=== PATIENT | female | born 1950 | race Caucasian/White ===

== ENCOUNTER 2019-05-27 16:35 | Emergency (ER) | payer MEDICARE, OTHER ==
[~2019-05-27] VITALS: Ht 157.5 cm; Wt 71.2 kg
--- NOTE | 2019-05-27 16:37 | ED General ---
General Stated Complaint: PASSED OUT Source of Information: Patient History of Present Illness Date Seen by Provider: May 27, 2019 Time Seen by Provider: 16:37 Initial Comments Patient is a 68-year-old female with past medical history significant for hy pertension who comes to the emergency department today after a near-syncopal episode. Patient states she ate some pulled pork last night. She was the only person in her family who ate this. She began to feel ill overnight. Around 10:30 this morning, she had an episode of emesis which was quickly followed by multiple episodes of watery diarrhea and additional emesis. She struggled with these symptoms over the course of the day. Just prior to arrival, she was on the commode having a bowel movement. When she began to change position and stand she felt lightheaded. She sat back down on the toilet and leaned against the wall. Patient believes that she may have lost consciousness. She called her daughter to come to her house and she was able to then ambulate and walk to her bed where she remained until her daughter arrived 30 minutes later. Patient did not have chest pain or shortness of breath. She had no palpitations. She complains of some diffuse abdominal cramping and epigastric pain. No fever. She has not been ill lately otherwise. Allergies and Home Medications Allergies Coded Allergies: fentanyl (Verified Allergy, Unknown, 05/27/19) hydrocodone (Verified Allergy, Unknown, 05/27/19) promethazine (Verified Allergy, Unknown, 05/27/19) scopolamine (Verified Allergy, Unknown, 05/27/19) sulfamethoxazole (Verified Allergy, Unknown, 05/27/19) trimethoprim (Verified Allergy, Unknown, 05/27/19) Uncoded Allergies: IV contrast (Allergy, Unknown, 05/27/19) Patient Home Medication List Home Medication List Reviewed: Yes Review of Systems Review of Systems Constitutional: no symptoms reported EENTM: no symptoms reported Respiratory: no symptoms reported Cardiovascular: no symptoms reported Gastrointestinal: see HPI Genitourinary: no symptoms reported Musculoskeletal: no symptoms reported Skin: no symptoms reported Psychiatric/Neurological: See HPI Past Cqivzyo-Ljkohj-Rvjkpn Hx Patient Social History Recent Foreign Travel: No Physical Exam Vital Signs Vital Signs - First Documented 05/27/19 16:35 Temp 36.9 Pulse 67 Resp 18 B/P (MAP) 127/70 (89) Pulse Ox 99 O2 Delivery Room Air Capillary Refill : Height, Weight, BMI Height: '" Weight: lbs. oz. 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 as Tested Skin: Normal Color Progress/Results/Core Measures Suspected Sepsis SIRS Temperature: Pulse: Respiratory Rate: Laboratory Tests 05/27/19 17:00: White Blood Count 10.0 Blood Pressure / Mean: Laboratory Tests 05/27/19 17:00: Platelet Count 265 Results/Orders Lab Results Laboratory Tests Test 05/27/19 17:00 Range/Units White Blood Count 10.0 4.3-11.0 10^3/uL Red Blood Count 4.67 4.35-5.85 10^6/uL Hemoglobin 13.7 11.5-16.0 G/DL Hematocrit 40 35-52 % Mean Corpuscular Volume 85 80-99 FL Mean Corpuscular Hemoglobin 29 25-34 PG Mean Corpuscular Hemoglobin Concent 34 32-36 G/DL Red Cell Distribution Width 12.4 10.0-14.5 % Platelet Count 265 130-400 10^3/uL Mean Platelet Volume 9.6 7.4-10.4 FL Neutrophils (%) (Auto) 90 H 42-75 % Lymphocytes (%) (Auto) 5 L 12-44 % Monocytes (%) (Auto) 4 0-12 % Eosinophils (%) (Auto) 1 0-10 % Basophils (%) (Auto) 0 0-10 % Neutrophils # (Auto) 9.0 H 1.8-7.8 X 10^3 Lymphocytes # (Auto) 0.5 L 1.0-4.0 X 10^3 Monocytes # (Auto) 0.4 0.0-1.0 X 10^3 Eosinophils # (Auto) 0.1 0.0-0.3 10^3/uL Basophils # (Auto) 0.0 0.0-0.1 10^3/uL Neutrophils % (Manual) 80 % Lymphocytes % (Manual) 6 % Monocytes % (Manual) 3 % Eosinophils % (Manual) 0 % Basophils % (Manual) 0 % Band Neutrophils 11 % Blood Morphology Comment NORMAL My Orders Orders - LINDA GOMEZ DO Ed Iv/Invasive Line Start (05/27/19 16:38) Cbc With Automated Diff (05/27/19 16:38) Basic Metabolic Panel (05/27/19 16:38) Probnp Fs (05/27/19 16:38) Troponin I Fs (05/27/19 16:38) Ekg Tracing (05/27/19 16:38) Liver Panel (05/27/19 16:39) Prochlorperazine Injection (Compazine In (05/27/19 16:45) Diphenhydramine Injection (Benadryl Inje (05/27/19 16:45) Ns Iv 1000 Ml (Sodium Chloride 0.9%) (05/27/19 17:00) Iohexol Injection (Omnipaque 350 Mg/Ml 1 (05/27/19 17:00) Received Contrast (Hold Metformin- Contr (05/27/19 17:00) Sodium Chloride Flush (Catheter Flush Sy (05/27/19 17:00) Ns (Ivpb) (Sodium Chloride 0.9% Ivpb Bag (05/27/19 17:00) Manual Differential (05/27/19 17:00) Ondansetron Injection (Zofran Injectio (05/27/19 17:30) Ct Abdomen/Pelvis Wo (05/27/19 16:39) Medications Given in ED Current Medications Medications Dose Ordered Sig/Smith Route Start Time Stop Time Status Last Admin Dose Admin Diphenhydramine HCl 12.5 mg ONCE ONCE IVP 05/27/19 16:45 05/27/19 16:46 DC 05/27/19 17:29 12.5 MG Ondansetron HCl 4 mg ONCE ONCE IVP 05/27/19 17:30 05/27/19 17:31 DC 05/27/19 17:29 4 MG Vital Signs/I&O 05/27/19 16:35 Temp 36.9 Pulse 67 Resp 18 B/P (MAP) 127/70 (89) Pulse Ox 99 O2 Delivery Room Air Capillary Refill : Progress Note : Time: 16:40 Progress Note Patient is seen and examined. Overall, her physical examination is unremarkable. Her vital signs are normal. Will do EKG, troponin, labs, and CT abdomen and pelvis to evaluate her abdominal pain. Medications for symptom relief are ordered including Benadryl, Compazine, Pepcid. Will give IVF one liter NS. 17:55: Currently receiving IV fluids. Feeling improved. CT scan and labs pending. Will transfer care to Dr. Velasco at this time. Please follow up on CT/Labs/ and symptom relief. ECG Initial ECG Impression Date: May 27, 2019 Initial ECG Impression Time: 17:00 Initial ECG Rate: 63 Initial ECG Rhythm: Normal Sinus Departure Impression Primary Impression: Gastroenteritis Disposition: 01 HOME, SELF-CARE Condition: Improved Departure-Patient Inst. Referrals: ALLEN JJ DO (PCP) Primary Care Physician LINDA GOMEZ DO May 27, 2019 16:37
[2019-05-27] MEDS ORDERED: NS IV 500 ML 500 ML IV SCH (16:45)
[2019-05-27] MEDS ORDERED: diphenhydrAMINE 50 MG/ML INJ (BENADRYL) IVP ONE (16:45)
[2019-05-27] MEDS ORDERED: PROCHLORPERAZINE 10 MG/2ML INJ (COMPAZINE) IV ONE (16:45)
[2019-05-27] MEDS ORDERED: NS 100 ML (IVPB) BAG IV ONE (17:00)
[2019-05-27] MEDS ORDERED: CATHETER FLUSH 10 ML SYR IV PRN (17:00)
[2019-05-27] MEDS ORDERED: HOLD METFORMIN - RECEIVED CONTRAST 20 ML VIAL IV SCH (17:00)
[2019-05-27] MEDS ORDERED: NS IV 1000 ML 1,000 ML IV SCH (17:00)
[2019-05-27] MEDS ORDERED: IOHEXOL 350 MG/ML 100 ML (OMNIPAQUE 350) VIAL IV ONE (17:00)
[2019-05-27 17:08] LABS: BASOPHILS % (AUTO) 0 % (0-10); EOSINOPHILS % (AUTO) 1 % (0-10); HEMATOCRIT 40 % (35-52); HEMOGLOBIN 13.7 G/DL (11.5-16.0); LYMPHOCYTES % (AUTO) 5 % (12-44); MEAN CORPUSCULAR HEMOGLOBIN 29 PG (25-34); MEAN CORPUSCULAR HGB CONC 34 G/DL (32-36); MEAN CORPUSCULAR VOLUME 85 FL (80-99); MEAN PLATELET VOLUME 9.6 FL (7.4-10.4); MONOCYTES % (AUTO) 4 % (0-12); NEUTROPHILS % (AUTO) 90 % (42-75); PLATELET COUNT 265 10^3/uL (130-400); RED CELL DISTRIBUTION WIDTH 12.4 % (10.0-14.5)
[2019-05-27 17:09] LABS: EOSINOPHILS # (AUTO) 0.1 10^3/uL (0.0-0.3); LYMPHOCYTES # (AUTO) 0.5 X 10^3 (1.0-4.0); MONOCYTES # (AUTO) 0.4 X 10^3 (0.0-1.0)
[2019-05-27] MEDS ORDERED: ONDANSETRON 4 MG/2 ML (SDV) Z0FRAN IVP ONE (17:30)
[2019-05-27 17:31] LABS: BAND NEUTROPHILS 11 %; BASOPHILS % (MANUAL) 0 %; EOSINOPHILS % (MANUAL) 0 %; LYMPHOCYTES % (MANUAL) 6 %; MONOCYTES % (MANUAL) 3 %; NEUTROPHILS % (MANUAL) 80 %; RBC MORPH NORMAL
[2019-05-27 17:32] LABS: BUN/CREATININE RATIO 26; CALCIUM 9.8 MG/DL (8.5-10.1); CARBON DIOXIDE 23 MMOL/L (21-32); CHLORIDE 103 MMOL/L (98-107); CREATININE SERUM 0.92 MG/DL (0.60-1.30); GFR ESTIMATED 60; GLUCOSE 123 MG/DL (70-105); POTASSIUM 4.2 MMOL/L (3.6-5.0); SODIUM 142 MMOL/L (135-145)
[2019-05-27 17:52] LABS: ALANINE AMINOTRANSFERASE 14 U/L (0-55); ALBUMIN 4.8 GM/DL (3.2-4.5); ALKALINE PHOSPHATASE 77 U/L (40-136); BILIRUBIN,DIRECT < 0.2 MG/DL (0.0-0.3); BILIRUBIN,INDIRECT 0.4 MG/DL; BILIRUBIN,TOTAL 0.6 MG/DL (0.1-1.0)
--- NOTE | 2019-05-27 17:57 | Diagnostic Imaging Report ---
PROCEDURE: CT abdomen and pelvis without contrast. TECHNIQUE: Multiple contiguous axial images were obtained through the abdomen and pelvis without the use of intravenous contrast. Auto Exposure Controls were utilized during the CT exam to meet ALARA standards for radiation dose reduction. INDICATION: Nausea, abdominal cramping and emesis. FINDINGS: Unenhanced images of the liver and spleen reveal no focal abnormality. Gallbladder is surgically absent. Calcified granuloma is noted in the spleen. There is probable fatty infiltration of the pancreas and small diverticulum arising from the descending duodenum. No adrenal gland or renal abnormality is seen. There is no hydronephrosis or ureteric stone. The appendix has a normal appearance. There is mild fluid distention of small bowel loops; however, no transition point or obstruction is identified. There are numerous left colonic diverticula without evidence of pericolonic inflammation or fluid collection. Unopacified bladder is unremarkable. There are calcified phleboliths seen, bilaterally, in the pelvis. There is mild diffuse lumbar spondylosis. IMPRESSION: No acute abnormality is detected. Dictated by: Dictated on workstation # [id number]
[2019-05-27 19:06] VITALS: BP 123/77
--- OUTSIDE RECORDS SUMMARY | 2019-06-04 15:59 | XMS REPORT | Continuity of Care Document ---
Author Organization Unknown Address Unknown Phone Unavailable Allergies Active Description Code Type Severity Reaction Onset Reported/Identified Relationship to Patient Clinical Status Yes fentanyl [id number] Drug Allergy Unknown N/A 05/27/2019 Yes hydrocodone [id number] Drug Aller gy Unknown N/A 05/27/2019 Yes Iodinated Contrast Media [id number] Drug Allergy Unknown N/A 05/27/2019 Yes IV contrast IV contrast Unknown N/A 05/27/2019 Yes No Known Drug Allergies [id number] Drug Allergy Unknown N/A 05/27/2019 Yes promethazine [id number] Drug Allergy Unknown N/A 05/27/2019 Yes scopolamine [id number] Drug Aller gy Unknown N/A 05/27/2019 Yes sulfamethoxazole [id number] Drug Allergy Unknown N/A 05/27/2019 Yes trimethoprim [id number] Drug Allergy Unknown N/A 05/27/2019 Medications There is no data. Problems There is no data. Procedures There is no data. Results Test Result Range LIPID PANEL - 11/03/18 08:00 CHOLESTEROL, TOTAL 177 mg/dL <200 HDL CHOLESTEROL 56 mg/dL >50 TRIGLYCERIDES 68 mg/dL <150 LDL-CHOLESTEROL 106 mg/dL (calc) NRG CHOL/HDLC RATIO 3.2 (calc) <5.0 NON HDL CHOLESTEROL 121 mg/dL (calc) <13 0 CMP - 11/03/18 08:00 GLUCOSE 96 mg/dL 65-99 UREA NITROGEN (BUN) 16 mg/dL 7-25 CREATININE 0.94 mg/dL 0.60-0.93 eGFR NON-AFR. LIBERIAN 61 mL/min/1.73m2 > OR = 60 eGFR 71 mL/min/1.73m2 > OR = 60 BUN/CREATININE RATIO 17 (calc) 6-22 SODIUM 139 mmol/L 135-146 POTASSIUM 4.6 mmol/L 3.5-5.3 CHLORIDE 105 mmol/L 98-110 CARBON DIOXIDE 27 mmol/L 20-32 CALCIUM 9.6 mg/dL 8.6-10.4 PROTEIN, TOTAL 7.2 g/dL 6.1-8.1 ALBUMIN 4.4 g/dL 3.6-5.1 GLOBULIN 2.8 g/dL (calc) 1.9-3.7 ALBUMIN/GLOBULIN RATIO 1.6 (calc) 1.0-2. 5 BILIRUBIN, TOTAL 0.5 mg/dL 0.2-1.2 ALKALINE PHOSPHATASE 66 U/L 33-130 AST 13 U/L 10-35 ALT 12 U/L 6-29 Complete blood count (CBC) with automate d white blood cell (WBC) differential - 05/27/19 17:00 Blood leukocytes automated count (number/volume) 10.0 10*3/uL 4.3-11.0 Blood erythrocytes automated count (number/volume) 4.67 10*6/uL 4.35-5.85 Venous blood hemoglobin measurement (mass/volume) 13.7 g/dL 11.5-16.0 Blood hematocrit (volume fraction) 40 % 35-52 Automated erythrocyte mean corpuscular volume 85 [ foz_us] 80-99 Automated erythrocyte mean corpuscular h emoglobin (mass per erythrocyte) 29 pg 25-34 Automated erythrocyte mean corpuscular h emoglobin concentration measurement (mass/volume) 34 g/dL 32-36 Automated erythrocyte distribution width ratio 12. 4 % 10.0- 14.5 Automated blood platelet count (count/volume) 265 10*3/uL 130-400 Automated blood platelet mean volume measurement 9.6 [foz_us] 7.4-10.4 Automated blood neutrophils/100 leukocytes 90 % 42-75 Automated blood lymphocytes/100 leukocytes 5 % 12-44 Blood monocytes/100 leukocytes 4 % 0-12 Automated blood eosinophils/100 leukocytes 1 % 0-10 Automated blood basophils/100 leukocytes 0 % 0-10 Blood neutrophils automated count (number/volume) 9.0 10*3 1.8-7.8 Blood lymphocytes automated count (number/volume) 0.5 10*3 1.0-4.0 Blood monocytes automated count (number/volume) 0. 4 10*3 0.0-1.0 Automated eosinophil count 0.1 10*3/uL 0 .0-0.3 Automated blood basophil count (count/volume) 0.0 10*3/uL 0.0-0.1 Manual absolute plasma cell count - 01/05 17:00 Blood monocytes/100 leukocytes 3 % NRG Manual blood segmented neutrophils/100 leukocytes 80 % NRG Blood band neutrophils/100 leukocytes 11 % NRG Manual blood lymphocytes/100 leukocytes 6 % NRG Manual eosinophils/100 leukocytes in nose 0 % NRG Manual blood basophils/100 leukocytes 0 % NRG Blood erythrocyte morphology finding identification NORMAL NRG Liver function panel (serum or plasma al k phos, alb, total and direct bili, total protein, ALT, AST) - 05/27/19 17:00 Serum or plasma total bilirubin measurement (mass/volu me) 0.6 mg/dL 0.1-1.0 Serum or plasma alkaline phosphatase michelle surement (enzymatic activity/volume) 77 U/L 40-136 Serum or plasma aspartate aminotransfera se measurement (enzymatic activity/volume) 15 U/L 5-34 Serum or plasma alanine aminotransferase measurement (enzymatic activity/volume) 14 U/L 0-55 Serum or plasma protein measurement (mass/volume) 8.0 g/dL 6.4-8.2 Serum or plasma albumin measurement (mass/volume) 4.8 g/dL 3.2-4.5 Bilirubin direct < mg/dL 0.0-0.3 Serum or plasma indirect bilirubin measurement (mass/v olume) 0.4 mg/dL NR Whole blood basic metabolic panel - 01/05 17:00 Serum or plasma sodium measurement (moles/volume) 142 mmol/L 135-145 Serum or plasma potassium measurement (moles/volume) 4.2 mmol/L 3.6-5.0 Serum or plasma chloride measurement (moles/volume) 103 mmol/L 98-107 Carbon dioxide 23 mmol/L 21-32 Serum or plasma anion gap determination (moles/volume) 16 mmol/L 5-14 Serum or plasma urea nitrogen measurement (mass/volume ) 24 mg/dL 7-18 Serum or plasma creatinine measurement (mass/volume) 0.92 mg/dL 0.60-1.30 Serum or plasma urea nitrogen/creatinine mass ratio 26 NRG Serum or plasma creatinine measurement w ith calculation of estimated glomerular filtration rate 60 NRG Serum or plasma glucose measurement (mass/volume) 123 mg/dL 70-105 Serum or plasma calcium measurement (mass/volume) 9.8 mg/dL 8.5-10.1 TROPONIN I FS - 05/27/19 17:00 TROPONIN I FS < 0.30 <0.30 PROBNP FS - 05/27/19 17:00 PROBNP FS 100.4 pg/mL <75.0 Encounters ACCT No. Visit Date/Time Discharge Status Pt. Type Provider Facility Loc./Unit Complaint [id number] 05/03/2019 13:10:00 05/03/2019 23:59: 59 [facility] Outpatient JULISSA DURAN [facility] [id number] 11/03/2018 08:00:00 Document Registration [id number] 05/27/2019 16:35:00 020 19:12:00 DIS Emergency GOMEZ LINDA GARCIA [facility] FS PASSED OUT
--- OUTSIDE RECORDS SUMMARY | 2019-06-04 15:59 | XMS REPORT ---
Author Author Anupama DURANA Organization [facility] Address [address] [place] [id number] Care Team Providers Care Squeegee Tender Name Role Phone DURAN, JULISSA Unavailable PROBLEMS Type Condition ICD9-CM Code [id number] Code Onset Dates Condition S tatus SNOMED Code Problem Gastroesophageal reflux disease without esophagitis K21.9 Active [id number] Problem GEGE (generalized anxiety disorder) F41.1 Active [id number] ALLERGIES No Known Allergies ENCOUNTERS Encounter Location Date Diagnosis [address] [address] Jun, GEGE (generalized anxiety disorder) F41.[address] [address] Jun, GEGE (generalized anxiety disorder) F41.1 and Gastroesophageal reflux disease without esophagitis K21.[address] [address] May, IMMUNIZATIONS No Known Immunizations SOCIAL HISTORY Never Assessed REASON FOR VISIT f/u on medication and needs refill PLAN OF CARE VITAL SIGNS Height 62.5 in 2018-06-19 Weight 182 lbs 2018-06-19 BMI 32.75 kg/m2 2018-06-19 Blood pressure systolic 118 mmHg 2018-06-19 Blood pressure diastolic 60 mmHg 2018-06-19 MEDICATIONS Medication Instructions Dosage Frequency Start Date End Date Duration S tatus Pantoprazole Sodium 40 MG Orally Once a day 1 tablet 24h Jun 30 day(s) Active Xanax 0.25 MG Orally Twice a day prn 1 tablet 30 days Active RESULTS No Results PROCEDURES Procedure Date Ordered Result Body Site [facility] VISIT ESTABLISHED PATIENT June 19, 2018 INSTRUCTIONS MEDICATIONS ADMINISTERED No Known Medications
--- OUTSIDE RECORDS SUMMARY | 2019-06-04 15:59 | XMS REPORT ---
Author Author Anupama DURAN JULISSA Organization [facility] Address [address] [place] [address] Care Team Providers Care Rn Cardiovascular Name Role Phone JULISSA DURAN Unavailable PROBLEMS Type Condition ICD9-CM Code VOJ09-AS Code Onset Dates Condition S tatus SNOMED Code Problem Gastroesophageal reflux disease without esophagitis K21.9 Active [id number] Problem GEGE (generalized anxiety disorder) F41.1 Active [id number] ALLERGIES No Information ENCOUNTERS Encounter Location Date Diagnosis [address] [address] Jun, GEGE (generalized anxiety disorder) F41.[address] [address] Jun, GEGE (generalized anxiety disorder) F41.1 and Gastroesophageal reflux disease without esophagitis K21.[address] [address] May, IMMUNIZATIONS No Known Immunizations SOCIAL HISTORY Never Assessed REASON FOR VISIT PLAN OF CARE VITAL SIGNS MEDICATIONS Medication Instructions Dosage Frequency Start Date End Date Duration S tatus Xanax 0.25 MG Orally Twice a day prn 1 tablet 30 days Active RESULTS No Results PROCEDURES No Known procedures INSTRUCTIONS MEDICATIONS ADMINISTERED No Known Medications
== END 2019-05-27 19:12 | disposition home or self-care (01) ==
LOC: EDUNIT# 16:35 → ER FS 16:35
DX: K52.9 Noninfective gastroenteritis and colitis, unspecified (principal); Z88.5 Allergy status to narcotic agent; Z88.8 Allergy status to other drugs, medicaments and biological substances; Z88.2 Allergy status to sulfonamides; Z88.1 Allergy status to other antibiotic agents
CPT/HCPCS: 36415; 74176; 80048; 80076; 83880; 84484; 85007; 85027; 93005; 96361; 96374; 96375

== ENCOUNTER → 2019-09-12 | Outpatient (CLI) | payer MEDICARE, OTHER ==
[2019-09-12 10:40] LABS: BUN/CREATININE RATIO 14; CARBON DIOXIDE 28 MMOL/L (21-32); CHLORIDE 102 MMOL/L (98-107); CREATININE SERUM 0.87 MG/DL (0.60-1.30); GFR ESTIMATED > 60; GLUCOSE 105 MG/DL (70-105); POTASSIUM 4.6 MMOL/L (3.6-5.0); SODIUM 140 MMOL/L (135-145)
[2019-09-12 10:41] LABS: ALANINE AMINOTRANSFERASE 9 U/L (0-55); ALBUMIN 4.5 GM/DL (3.2-4.5); ALKALINE PHOSPHATASE 72 U/L (40-136); BILIRUBIN,TOTAL 0.5 MG/DL (0.1-1.0); CALCIUM 9.6 MG/DL (8.5-10.1); MAGNESIUM 2.1 MG/DL (1.6-2.4); TOTAL PROTEIN 7.4 GM/DL (6.4-8.2)
[2019-09-12 15:04] LABS: CHOLESTEROL 184 MG/DL (< 200); HDL CHOLESTEROL 56 MG/DL (40-60); TRIGLYCERIDES 87 MG/DL (<150); VLDL CHOLESTEROL 17 MG/DL (5-40)
== END ==
LOC: LAB FS 09:37
PROVIDERS: ATTEND Family Medicine
DX: I10 Essential (primary) hypertension (principal); R25.2 Cramp and spasm; R50.9 Fever, unspecified; Z20.828 Contact with and (suspected) exposure to other viral communicable diseases
CPT/HCPCS: 36415; 80053; 80061; 83735; 86769

== ENCOUNTER → 2019-10-07 | Outpatient (CLI) | payer MEDICARE, OTHER | LOC: LAB FS 02:15 | PROVIDERS: ATTEND Family Medicine | DX: Z01.818 Encounter for other preprocedural examination (principal) | CPT/HCPCS: 87635 ==

== ENCOUNTER → 2020-03-31 | Outpatient (CLI) | payer MEDICARE, OTHER ==
[2020-03-31 15:03] LABS: ALANINE AMINOTRANSFERASE 12 U/L (0-55); ALBUMIN 4.2 GM/DL (3.2-4.5); ALKALINE PHOSPHATASE 66 U/L (40-136); BILIRUBIN,TOTAL 0.4 MG/DL (0.1-1.0); BUN/CREATININE RATIO 15; CALCIUM 8.9 MG/DL (8.5-10.1); CARBON DIOXIDE 24 MMOL/L (21-32); CHLORIDE 104 MMOL/L (98-107); CHOLESTEROL 171 MG/DL (< 200); CREATININE SERUM 0.87 MG/DL (0.60-1.30); GFR ESTIMATED > 60; GLUCOSE 94 MG/DL (70-105); HDL CHOLESTEROL 59 MG/DL (40-60); POTASSIUM 4.1 MMOL/L (3.6-5.0); SODIUM 138 MMOL/L (135-145); TRIGLYCERIDES 68 MG/DL (<150); VLDL CHOLESTEROL 14 MG/DL (5-40)
== END ==
LOC: LAB FS 11:12
PROVIDERS: ATTEND Family Medicine
DX: I10 Essential (primary) hypertension (principal)
CPT/HCPCS: 36415; 80053; 80061

== ENCOUNTER → 2020-05-07 | Outpatient (CLI) | payer MEDICARE ==
--- NOTE | 2020-05-07 14:42 | Diagnostic Imaging Report ---
INDICATION: Left heel pain. COMPARISON: None. FINDINGS: Two views of the left calcaneus were obtained and show no fractures, dislocations, or other acute bony abnormalities. Joint spaces are well maintained throughout. The soft tissues appear unremarkable. No radiopaque foreign bodies are identified. IMPRESSION: Unremarkable radiographic exam of the left calcaneus. Dictated by: Dictated on workstation # [id number]
--- NOTE | 2020-05-07 14:43 | Diagnostic Imaging Report ---
INDICATION: Neck pain. Shoulder pain. COMPARISON: None FINDINGS: Frontal, lateral, oblique, and open-mouth radiographic views of the cervical spine were obtained. Cervical spine is seen down to C7-T1 level on the lateral view. Static alignment is maintained. There is no significant kylie- or retrolisthesis. There is no evidence of jumped facets. Open-mouth view shows normal C1-C2 alignment as well. There is no acute fracture. Vertebral body heights are maintained. There are moderate multilevel degenerative changes consistent with intervertebral disc height loss with disc osteophyte complex formations. These changes are greatest at the C6-C7 level where there is also significant sclerotic change of the adjacent endplates. Oblique views show mild multilevel neural foraminal narrowing. Surrounding soft tissue structures are unremarkable. Included portions of the lung apices are clear. IMPRESSION: 1. No acute fracture or dislocation of the cervical spine. 2. Moderate multilevel degenerative changes greatest at C6-C7. Dictated by: Dictated on workstation # [id number]
--- NOTE | 2020-05-07 14:44 | Diagnostic Imaging Report ---
INDICATION: Back pain. COMPARISON: None FINDINGS: Frontal and lateral views of the lumbar spine were obtained. Evaluation of static alignment shows slight grade 1 anterolisthesis at L4-L5. There is no evidence of jumped facets. Static alignment is otherwise maintained. Vertebral body heights are preserved. There is no fracture or destructive process. Moderate multilevel degenerative disease is noted in the lumbar spine. Limited views of the abdomen demonstrate nonobstructive bowel gas pattern. IMPRESSION: 1. No acute fracture or dislocation of the lumbar spine. 2. Moderate multilevel degenerative changes. Dictated by: Dictated on workstation # [id number]
== END ==
LOC: RAD FS 13:17
PROVIDERS: ATTEND Family Medicine
DX: M47.816 Spondylosis without myelopathy or radiculopathy, lumbar region (principal); M50.323 Other cervical disc degeneration at C6-C7 level; M48.02 Spinal stenosis, cervical region; M72.2 Plantar fascial fibromatosis
CPT/HCPCS: 72050; 72100; 73650

== ENCOUNTER → 2020-05-19 | Outpatient (CLI) | payer MEDICARE, OTHER ==
--- NOTE | 2020-05-19 15:18 | Diagnostic Imaging Report ---
PROCEDURE: MR imaging cervical spine without contrast. TECHNIQUE: Multiplanar, multisequence MR imaging of the cervical spine was performed without contrast. INDICATION: Neck and shoulder pain correlated with cervical radiographs of 05/07/2020. The cervical spinal cord itself appeared intrinsically normal with normal signal intensity. No paraspinal mass, hemorrhage or fluid collection. The ligamentous structures are intact. There is slight grade 1 degenerative retrolisthesis of C3 on 4, C4 on 5 and C5 on C6, measured about 1 to 2 mm. No acute bony pathology. There is an incidental hemangioma involving the T4 vertebral body. No acute or suspicious marrow signal abnormality. Degenerative disc bulge, endplate osteophytes and facet arthrosis result in multilevel canal and foraminal stenoses. The craniocervical relationship, the C1-C2 and the C2-C3 levels appeared normal without stenosis. C3-C4: Osteophyte disc material posteriorly indents the ventral thecal sac. There is a moderate to severe magnitude of central canal stenosis with relatively mild biforaminal stenoses. C4-C5: Posterior osteophyte disc material flattens and effaces the ventral thecal sac and mildly effaces and indents the ventral cord. There is severe canal stenosis with moderate bi-foraminal narrowing. C5-C6: Posterior osteophyte disc material indents the ventral thecal sac and mildly indents the ventral cord. There is severe canal stenosis with moderate right and mild left foraminal narrowing. C6-C7: Posterior osteophyte disc material indents the ventral thecal sac. There is a moderate degree of canal stenosis. There is mild biforaminal narrowing. C7-T1: No significant stenosis IMPRESSION: Substantial degrees of multilevel canal and foraminal stenoses, most notable from C3-C4 through C6-C7 levels are present. Slight multilevel grade 1 degenerative listheses with no acute bony abnormality. Dictated by: Dictated on workstation # [id number]
== END ==
LOC: RAD 12:53
PROVIDERS: ATTEND Family Medicine
DX: M48.02 Spinal stenosis, cervical region (principal); M43.12 Spondylolisthesis, cervical region; R20.0 Anesthesia of skin
CPT/HCPCS: 72141

== ENCOUNTER → 2020-06-27 | Outpatient (CLI) | payer MEDICARE, OTHER ==
[2020-06-27 10:16] LABS: BUN/CREATININE RATIO 10; CARBON DIOXIDE 26 MMOL/L (21-32); CHLORIDE 103 MMOL/L (98-107); CREATININE SERUM 0.87 MG/DL (0.60-1.30); GFR ESTIMATED > 60; GLUCOSE 104 MG/DL (70-105); SODIUM 141 MMOL/L (135-145)
[2020-06-27 10:17] LABS: ALANINE AMINOTRANSFERASE 11 U/L (0-55); ALBUMIN 4.6 GM/DL (3.2-4.5); ALKALINE PHOSPHATASE 64 U/L (40-136); BILIRUBIN,TOTAL 0.4 MG/DL (0.1-1.0); CALCIUM 9.4 MG/DL (8.5-10.1); TOTAL PROTEIN 7.4 GM/DL (6.4-8.2)
[2020-06-27 15:06] LABS: CHOLESTEROL 150 MG/DL (< 200); HDL CHOLESTEROL 49 MG/DL (40-60); TRIGLYCERIDES 54 MG/DL (<150); VLDL CHOLESTEROL 11 MG/DL (5-40)
== END ==
LOC: LAB FS 09:09
PROVIDERS: ATTEND Family Medicine
DX: I10 Essential (primary) hypertension (principal)
CPT/HCPCS: 36415; 80053; 80061

== ENCOUNTER → 2020-09-29 | Outpatient (CLI) | payer MEDICARE, OTHER | LOC: LAB FS 16:37 | PROVIDERS: ATTEND Family Medicine | DX: U07.1 COVID-19 (principal) | CPT/HCPCS: 36415; 86769 ==

== ENCOUNTER → 2020-09-30 | Outpatient (CLI) | payer MEDICARE, OTHER | LOC: LABNPT 16:41 | PROVIDERS: ATTEND Family Medicine | DX: N39.0 Urinary tract infection, site not specified (principal) | CPT/HCPCS: 87088 ==

== ENCOUNTER → 2021-02-19 | Outpatient (CLI) | payer MEDICARE, OTHER ==
[2021-02-19 11:20] LABS: BUN/CREATININE RATIO 14; CALCIUM 9.6 MG/DL (8.5-10.1); CARBON DIOXIDE 28 MMOL/L (21-32); CHLORIDE 102 MMOL/L (98-107); CREATININE SERUM 0.86 MG/DL (0.60-1.30); GFR ESTIMATED 65; GLUCOSE 97 MG/DL (70-105); POTASSIUM 4.1 MMOL/L (3.6-5.0); SODIUM 138 MMOL/L (135-145)
[2021-02-19 11:21] LABS: ALANINE AMINOTRANSFERASE 8 U/L (0-55); ALBUMIN 4.7 GM/DL (3.2-4.5); ALKALINE PHOSPHATASE 72 U/L (40-136); BILIRUBIN,TOTAL 0.4 MG/DL (0.1-1.0); TOTAL PROTEIN 7.5 GM/DL (6.4-8.2)
[2021-02-19 15:13] LABS: CHOLESTEROL 192 MG/DL (< 200); HDL CHOLESTEROL 61 MG/DL (40-60); TRIGLYCERIDES 63 MG/DL (<150); VLDL CHOLESTEROL 13 MG/DL (5-40)
== END ==
LOC: LAB FS 09:54
PROVIDERS: ATTEND Registered Nurse Emergency
DX: I10 Essential (primary) hypertension (principal); E78.2 Mixed hyperlipidemia
CPT/HCPCS: 36415; 80053; 80061

== ENCOUNTER → 2021-04-07 | Outpatient (CLI) | payer MEDICARE, OTHER | LOC: LABNPT 14:42 | PROVIDERS: ATTEND Registered Nurse Emergency | DX: N39.0 Urinary tract infection, site not specified (principal) | CPT/HCPCS: 87088 ==

== ENCOUNTER → 2021-04-16 | Outpatient (CLI) | payer MEDICARE, OTHER | LOC: LABNPT 15:01 | PROVIDERS: ATTEND Family Medicine | DX: Z20.822 Contact with and (suspected) exposure to COVID-19 (principal) | CPT/HCPCS: 87636 ==

== ENCOUNTER → 2021-07-07 | Outpatient (CLI) | payer MEDICARE, OTHER ==
[2021-07-07 11:08] LABS: BILIRUBIN,TOTAL 0.5 MG/DL (0.1-1.0); CALCIUM 9.7 MG/DL (8.5-10.1); CREATININE SERUM 0.84 MG/DL (0.60-1.30); POTASSIUM 4.1 MMOL/L (3.6-5.0)
[2021-07-07 11:09] LABS: ALBUMIN 4.5 GM/DL (3.2-4.5); TOTAL PROTEIN 7.5 GM/DL (6.4-8.2)
== END ==
LOC: LAB FS 10:12
PROVIDERS: ATTEND Family Medicine
DX: I10 Essential (primary) hypertension (principal)
CPT/HCPCS: 36415; 80053; 80061

== ENCOUNTER → 2022-01-08 | Outpatient (CLI) | payer MEDICARE, OTHER ==
[2022-01-08 16:40] LABS: BASOPHILS % (AUTO) 0 % (0-10); EOSINOPHILS % (AUTO) 1 % (0-10); HEMATOCRIT 35 % (35-52); HEMOGLOBIN 11.7 g/dL (11.5-16.0); LYMPHOCYTES # (AUTO) 1.3 10^3/uL (1.0-4.0); LYMPHOCYTES % (AUTO) 19 % (12-44); MEAN CORPUSCULAR HEMOGLOBIN 30 pg (25-34); MEAN CORPUSCULAR HGB CONC 34 g/dL (32-36); MEAN CORPUSCULAR VOLUME 88 fL (80-99); MEAN PLATELET VOLUME 9.4 fL (9.0-12.2); MONOCYTES # (AUTO) 0.4 10^3/uL (0.0-1.0); MONOCYTES % (AUTO) 5 % (0-12); NEUTROPHILS # (AUTO) 5.2 10^3/uL (1.8-7.8); NEUTROPHILS % (AUTO) 75 % (42-75); PLATELET COUNT 243 10^3/uL (130-400)
[2022-01-08 16:58] LABS: ALBUMIN 4.5 GM/DL (3.2-4.5); BILIRUBIN,TOTAL 0.3 MG/DL (0.1-1.0); CALCIUM 9.4 MG/DL (8.5-10.1); CREATININE SERUM 1.06 MG/DL (0.60-1.30); POTASSIUM 4.3 MMOL/L (3.6-5.0); TOTAL PROTEIN 7.3 GM/DL (6.4-8.2)
== END ==
LOC: LAB FS 16:27
PROVIDERS: ATTEND Registered Nurse Emergency
DX: R42 Dizziness and giddiness (principal); R55 Syncope and collapse
CPT/HCPCS: 36415; 80053; 85025

== ENCOUNTER 2022-02-03 05:30 | Outpatient (CLI) | payer MEDICARE, OTHER ==
[~2022-02-03] VITALS: Ht 157.5 cm; Wt 68.1 kg
[2022-02-04] MEDS ORDERED: PANT40GR PO (13:12)
[2022-02-10] MEDS ORDERED: TRAM50TA3 PO (12:04)
== END 2022-02-04 13:27 | disposition home or self-care (01) ==
LOC: PREOP 05:30
PROVIDERS: ATTEND Surgery
DX: Z01.818 Encounter for other preprocedural examination (principal)

== ENCOUNTER 2022-02-10 09:23 | Day surgery (SDC) | payer MEDICARE, OTHER ==
[2022-02-10] VITALS (10 sets, daily range): BP systolic 94–150; BP diastolic 58–77
[~2022-02-10] VITALS: Ht 157 cm; Wt 68.1 kg
[~2022-02-10 09:23] MED LIST: PANT40GR PO
[2022-02-10] MEDS ORDERED: ceFAZolin INJECTION 2,000 MG in NS (IVPB) 50 ML IV ONE (09:45)
[2022-02-10] MEDS ORDERED: LACTATED RINGERS 1,000 ML IV PRN (09:45)
[2022-02-10] MEDS ORDERED: LIDOCAINE/EPI 1%-1:100,000 (XYLOCAINE) 10 ML ONE (11:15)
[2022-02-10] MEDS ORDERED: ONDANSETRON 4 MG/2 ML (SDV) Z0FRAN ONE ×3 (11:21→12:19)
[2022-02-10] MEDS ORDERED: proPOfol 200 MG/20 ML (DIPRIVAN) VIAL IV ONE (11:21)
[2022-02-10] MEDS ORDERED: HYDROmorphone 2 MG/ML VIAL (DILAUDID) ONE (11:21)
[2022-02-10] MEDS ORDERED: LIDOCAINE PF 2% 5 ML (XYLOCAINE) VIAL ONE (11:21)
[2022-02-10] MEDS ORDERED: LIDOCAINE/EPI 1%-1:100,000 (XYLOCAINE) 10 ML INJ ONE (11:59)
[2022-02-10] MEDS ORDERED: SEVOFLURANE (ULTANE) 15 ML INHAL SOLN ONE (12:00)
--- NOTE | 2022-02-10 12:02 | Progress Note-Post Operative ---
Post-Operative Progess Note Surgeon (s)/Brazing Furnace Feeder (s) Surgeon PHILLIP TODD DO Brazing Furnace Feeder: RADHA Hernandez Pre-Operative Diagnosis MASS LEFT SHOULDER Post-Operative Diagnosis same pending path Procedure & Operative Findings Date of Procedure 02/10/22 Procedure Performed/Findings Excision of Left shoulder mass, in SubQ Incision measured 3.2cm Anesthesia Type LMA Estimated Blood Loss Estimated blood loss (mL): scant Specimens/Packing Specimens Removed left shoulder mass and skin PHILLIP TODD DO Feb 10, 2022 12:02
[2022-02-10] MEDS ORDERED: TRAM50TA3 PO (12:04)
--- NOTE | 2022-02-10 12:06 | Discharge Inst-Surgical ---
Discharge Inst-Surgical Depart Medication/Instructions New, Converted or Re-Newed RX: Transmitted to Pharmacy Patient Instructions Follow up Appt: Make appointment for 1 week. [phone] Instructions: No strenuous activity. May shower in 24 hours, no tub bath or soaking. Use incentive spirometer at home as directed. No Smoking Skin/Wound Care: You need to come in to clinic to have the sutures removed Symptoms to Report: Appetite Changes, Extremity Discoloration, Numbness/Tingling, Swelling Increased, Bleeding Excessive, Eyesight Changes, Pain Increased, Urine Color Change, Constipation(Persistent), Fever over 101 degree F, Pain/Pressure in chest, Urinating Difficulty, Cough Up/Vomit Blood, Heart Beat Irreg/Pounding, Pain/Pressure in jaw, Cramps in feet or legs, Lightheadedness, Pain/Pressure in shoulder, Diarrhea(Persistent), Memory Changes Suddenly, Questions/Concerns, Weight gain consecutive days, Dizziness/Fainting, Nausea/Vomiting, Shortness of Breath, Weight gain over 2 pounds If questions or concerns contact your physician Or seek help at emergency department. Activity Activity as Tolerated: Yes Activity Instructions: Avoid Stress to Incision Driving Instructions: No Driving/Refer to Dr. Angulo Discharge Diet: No Restrictions Diet After 24 Hours: Clear Liquid if Nauseous If Any Problems/Questions/Issu: Contact Your Physician, Go to Emergency Room Skin/Wound Care Infection Signs and Symptoms: Increased Redness, Foul Odor of Wound, Increased Drainage, Skin Itchy or Has a Rash, Increased Swelling, Temperature Above 101 F Bathing Instructions: Shower Stitches/[place]/Dermabond Dis: Care of Stitches PHILLIP TODD DO Feb 10, 2022 12:06
--- NOTE | 2022-02-10 13:01 | Anesthesia-General Post-Op ---
General Patient Condition Mental Status/LOC: Same as Preop Cardiovascular: Satisfactory Nausea/Vomiting: Absent Respiratory: Satisfactory Pain: Controlled Complications: Absent Post Op Complications Complications None Follow Up Care/Instructions Patient Instructions None needed. Anesthesia/Patient Condition Patient Condition Patient is doing well, no complaints, stable vital signs, no apparent adverse anesthesia problems. No complications reported per nursing. SOFY ESPINAL CRNA Feb 10, 2022 13:01
[2022-02-10] MEDS: ONDANSETRON 4 MG/2 ML (SDV) Z0FRAN IVP PRN ×2 (13:04→13:35)
[2022-02-10] MEDS ORDERED: ONDANSETRON 4 MG/2 ML (SDV) Z0FRAN IVP ONE (13:30)
--- NOTE | 2022-02-10 23:17 | OPERATIVE REPORT ---
DATE OF SERVICE: 02/10/2022 PREOPERATIVE DIAGNOSIS: Left shoulder mass. POSTOPERATIVE DIAGNOSIS: Left subcutaneous shoulder mass. PROCEDURE: Excision of shoulder mass, 3.2 cm incision into the subcutaneous tissue. SURGEON: Tay Todd DO PROBATE CLERK: Anthony Naidu MS3. BLOOD LOSS: Scant. FLUIDS: Per anesthesia. POSTOPERATIVE CONDITION: Stable. INDICATION FOR PROCEDURE: The patient is a 71-year-old female, who had a mass on her left shoulder. She wanted to get it removed, could not do this in the office. FINDINGS: The patient had a left shoulder mass, removed and sent to pathology. PROCEDURE NOTE: After informed consent was obtained, the patient was brought to the operating room, placed on the table in supine position. Bump placed in the left shoulder. She was then sterilely prepped and draped in normal fashion. Local lidocaine was used to infiltrate the skin around this mass. I made an elliptical incision to take a portion of the skin with it. This was a subcutaneous mass. Incision measured 3.2 cm in length. This elliptical incision, infiltrated with local, made an incision with #15 blade, carried down through skin and subcutaneous tissue, then deepened down to subcutaneous tissue with Bovie electrocautery down and around the mass, removed it en bloc, passed this off table. Irrigated the incision with normal saline. Dried this out and then closed the incision with 3 interrupted 3-0 nylon vertical mattress sutures. Area was cleaned and dried, dressing placed. The patient tolerated the procedure. Sponge, instrument and needle count correct at the end of the case. Job ID: [id number] DocumentID: [id number] Dictated Date: 02/10/2022 14:04:19 Senior Consulting Manager Date: 02/10/2022 23:16:52 Dictated By: TAY TODD DO
== END 2022-02-10 14:25 | disposition home or self-care (01) ==
LOC: SDC 09:23
PROVIDERS: ATTEND Surgery
DX: L72.0 Epidermal cyst (principal)
CPT/HCPCS: 87081

== ENCOUNTER → 2022-07-08 | Outpatient (CLI) | payer MEDICARE, OTHER ==
[~2022-07-08] MED LIST changes: +TRAM50TA3 PO
--- NOTE | 2022-07-08 18:22 | Diagnostic Imaging Report ---
INDICATION: Chest pain, high blood pressure. COMPARISONS: None FINDINGS: PA and lateral chest show normal heart pleura and diaphragms. There is slight prominent central lung markings with some peribronchial cuffing. Some minimal basilar atelectatic type infiltrates are seen but no confluent consolidations. There is some scattered granuloma. There is a small apparent density in the lateral right lower lobe which is thought to be summation of shadows rather than focal nodule. There is no effusion or pneumothorax. Soft tissues and bony thorax unremarkable. IMPRESSION: Some central reactive changes of mild bronchitis. Some background chronic parenchymal changes are seen. No consolidation, effusion or pneumothorax seen. Additional nonemergent findings as described. Dictated by: Dictated on workstation # [id number]
== END ==
LOC: RAD FS 16:50
PROVIDERS: ATTEND Family Medicine
DX: J40 Bronchitis, not specified as acute or chronic (principal); K21.9 Gastro-esophageal reflux disease without esophagitis; I10 Essential (primary) hypertension
CPT/HCPCS: 71046

== ENCOUNTER → 2022-09-20 | Outpatient (CLI) | payer MEDICARE, OTHER ==
--- NOTE | 2022-09-20 18:39 | Diagnostic Imaging Report ---
PROCEDURE: CT chest without contrast. TECHNIQUE: Multiple contiguous axial images were obtained through the chest without the use of intravenous contrast. Auto Exposure Controls were utilized during the CT exam to meet ALARA standards for radiation dose reduction. INDICATION: 72-year-old female, post Covid with precordial pain. CORRELATION STUDY: None FINDINGS: Visualized thyroid gland is enlarged with multiple masses, right greater than left. Calcified lymph nodes within the mediastinum and right hilum. No pathologic mediastinal lymph nodes on this noncontrast study. Heart size is within normal limits. There is coronary artery calcification particularly in the region of the LAD. No significant pericardial effusion. Thoracic aortic contour unremarkable. Gastroesophageal junction unremarkable. Lung arteaga demonstrate no infiltrate. Calcified granuloma in the right upper and right lower lobe. There are several small, approximately 2 to 4 mm noncalcified nodules bilateral upper lobes. Findings suggest an endobronchial nodule at the left lower lobe centrally measures approximately 8 mm in length x 7 mm craniocaudal (image 96 series 5 and image 129, series 7 and image 37 series 11). Gallbladder is absent. Osseous structures demonstrate no acute abnormality with mildly advanced degenerative changes and slightly accentuated thoracic kyphosis. IMPRESSION: 1. Bilateral small upper lobe pulmonary nodules some of which are calcified. May reflect prior granulomatous disease. Other noncalcified nodules are nonspecific. 2. There does appear to be an asymmetric endobronchial nodule left lower lobe. While conceivably represent secretions/mucus, endobronchial nodule is not excluded. This does warrant short-term follow-up imaging with a recommendation for repeat CT chest in approximately 1 to 2 months. Dictated by: Dictated on workstation # [id number]
== END ==
LOC: RAD FS 10:12
PROVIDERS: ATTEND Family Medicine
DX: R91.8 Other nonspecific abnormal finding of lung field (principal); R07.2 Precordial pain
CPT/HCPCS: 71250

== ENCOUNTER → 2022-11-09 | Outpatient (CLI) | payer MEDICARE, OTHER ==
--- NOTE | 2022-11-09 11:04 | Diagnostic Imaging Report ---
EXAMINATION: CT chest without contrast. TECHNIQUE: Multiple contiguous axial images were obtained through the chest without the use of intravenous contrast. All CT scans use one or more of the following dose optimizing techniques: automated exposure control, MA and/or KvP adjustment based on patient size and exam type or iterative reconstruction. HISTORY: Precordial pain. COMPARISON: 09/20/2022. FINDINGS: The heart size is within normal limits. No pericardial effusion is present. There is no mediastinal, hilar, or axillary lymphadenopathy. Stable scattered calcified granulomas. Stable nodule in the left lower lobe measuring 0.8 x 0.7 cm. No new suspicious nodules. There are no focal areas of consolidation. There is no pleural effusion or pneumothorax. The osseous structures demonstrate no acute abnormalities. Limited views of the upper abdominal structures demonstrate no acute abnormalities. Both adrenal glands are unremarkable. IMPRESSION: 1. Stable nodule in the left lower lobe measuring 0.8 x 0.7 cm, which appears to represent an endobronchial nodule versus chronic mucous plugging. Given the stability, follow-up in 3-6 months is recommended to ensure continued stability. 2. No new suspicious nodules are identified. Dictated by: Dictated on workstation # [id number]
== END ==
LOC: RAD FS 07:53
PROVIDERS: ATTEND Family Medicine
DX: R91.1 Solitary pulmonary nodule (principal); R07.2 Precordial pain
CPT/HCPCS: 71250

== ENCOUNTER → 2023-03-22 | Outpatient (CLI) | payer MEDICARE, OTHER ==
--- NOTE | 2023-03-22 12:51 | Diagnostic Imaging Report ---
PROCEDURE: CT chest without contrast. TECHNIQUE: Multiple contiguous axial images were obtained through the chest without the use of intravenous contrast. Auto Exposure Controls were utilized during the CT exam to meet ALARA standards for radiation dose reduction. INDICATION: Precordial pain, chest pain COMPARISON: 11/09/2022 FINDINGS: Multiple calcified mediastinal and hilar lymph nodes are again identified. No pathologically enlarged lymph nodes within the chest. Ectasia of the ascending thoracic aorta measuring up to 3.9 cm. Scattered vascular calcifications which are mild in nature, including within the coronary arteries. The heart is within normal limits in size. No pericardial effusion. No pleural effusion. The trachea is patent. No pneumothorax. 0.8 x 0.3 x 0.9 cm tubular left lower lobe pulmonary nodule is again identified and stable, series 5, image 95. Calcified granuloma within the right upper lobe. Tiny sub 0.4 cm left greater than right bilateral pulmonary nodules are again identified and stable. No new suspicious pulmonary nodule. Cholecystectomy. Calcified splenic granuloma. Hemangioma within the upper thoracic spine. Scattered osseous degenerative changes. No acute osseous abnormality. IMPRESSION: Stable tubular 0.7 cm mean diameter left lower lobe pulmonary nodule. This remains indeterminate, though is unchanged since September 2022. A follow-up CT of the chest is recommended in one year to ensure stability. Additional tiny bilateral sub 0.4 cm pulmonary nodules, unchanged. No new pulmonary nodule. Evidence of chronic granulomatous disease. Additional findings as above. Dictated by: Dictated on workstation # [id number]
== END ==
LOC: RAD FS 09:14
PROVIDERS: ATTEND Family Medicine
DX: R91.8 Other nonspecific abnormal finding of lung field (principal); R07.2 Precordial pain
CPT/HCPCS: 71250